=== PATIENT | male | born 1970 | race Caucasian/White ===

== ENCOUNTER 2019-09-12 14:50 | Emergency (ER) | payer MEDICAID ==
[~2019-09-12] VITALS: Ht 180.3 cm; Wt 72.6 kg
[2019-09-12 14:50] VITALS: BP_SYST 105
[2019-09-12 16:10] VITALS: BP_SYST 105
== END 2019-09-12 16:10 ==
LOC: SED 14:50
DX: M54.5 Low back pain (principal); E11.9 Type 2 diabetes mellitus without complications; Z90.49 Acquired absence of other specified parts of digestive tract
CPT/HCPCS: 72100-TC; 82962; 99283